=== PATIENT | female | born 1975 | race Caucasian/White ===

== ENCOUNTER 2023-05-03 01:46 | Outpatient (CLI) | payer SELFPAY ==
[2023-05-04 18:24] LABS: HBs Antibody, Quant 149.3 mIU/mL (See Note); Hepatitis B Surface Ab Positive (See Note)
[2023-05-07 11:09] LABS: Measles IgG Antibody Positive (See Note); Mumps Antibody IgG Positive (See Note); Varicella IgG Antibody Positive (See Note)
[2023-05-07 11:17] LABS: Rubella IgG Ab (UVM) Positive (See Note)
[2023-05-07 14:17] LABS: TB Interpretation Negative (Negative); TB2 Ag minus Nil 0.02 IU/mL
== END 2023-05-03 01:47 | disposition home or self-care (01) ==
PROVIDERS: Visit Provider Nurse Practitioner Family
DX: Z02.1 Encounter for pre-employment examination (principal)
CPT/HCPCS: 36415; 86706; 86787; 86480; 86735; 86762; 86765

== ENCOUNTER 2023-06-12 05:54 | Emergency (ER) | payer SELFPAY ==
[2023-06-12 05:57] VITALS: BP 195/93; PULSE 85; RESP 16; TEMP 36.5; O2SAT 99
--- NOTE | 2023-06-12 06:00 | DI.RAD_ITS ---
Exam(s) XR ANKLE RT COMPLETE EXAM: XR ANKLE RT COMPLETE CLINICAL HISTORY: Right lateral malleolar pain. TECHNIQUE: 2D digital imaging was performed. COMPARISON: No exams were available for comparison FINDINGS: 3 views There is soft tissue swelling over the lateral malleolus but no fracture. No widening of the ankle m ortise. Talar dome unremarkable. Bone density normal. No osseous lesions. No osseous tarsal coali tion. IMPRESSION: Soft tissue swelling laterally. No fracture evident. DATA REPOSITORY: RADIATION DOSE DELIVERED:
--- NOTE | 2023-06-12 06:02 | ED.GENADUL_ITS ---
Discharge Plan Disposition Patient Disposition: Home Discharge Details Clinical Impression: Right ankle sprain Primary Care Provider: Unknown,Unknown ED Provider: Hussain Brock Home Meds and New Rx's Prescriptions: No Action No Known Home Meds Discharge Instructions Instructions: Ankle Sprain (ED) Additional Instructions: You were seen in the emergency department for your ankle pain. Your x-ray showed no sign of any fractures and you were diagnosed with an ankle sprain. Please wear this lace up ankle brace. Please keep your foot elevated today. Please ice for 20 minutes on 20 minutes off today. Please return to the emergency department if you cannot feel your toes if you develop worsening pain or if you take any other falls. Otherwise please follow-up later this week with your primary care provider. For your pain please take medications as follows: 1. Take acetaminophen (Tylenol), 1,000 mg (two 500 mg tabs) every 6 hours [2. Take ibuprofen (Advil), 400 mg every 6 hours.] Stand Alone Forms: Work Release HPI General Date/Time Provider Initiated Documentation: 06/12/23 06:02 . HPI Narrative: MDM This is an overall very well-appearing normothermic and not tachycardic 48-year-old female with right lateral malleolus tenderness and swelling concerning for fracture versus ankle sprain. No pain out of proportion to suggest necrotizing soft tissue infection. No proximal tibial tenderness to suggest Maisonneuve as injury. Patient is not a diabetic nor a vasculopath and has warm well-perfused feet bilaterally so I have no suspicion for aortic occlusion nor aortic dissection so I do not feel that the patient requires a CT angiogram with runoffs. Given her well-perfused warm foot with less than 2- second capillary refill I have no suspicions for critical limb ischemia. No calf pain to suggest increased risk for DVT so I did not feel that the patient required a duplex study. No recent fluoroquinolone use nor any posterior lower extremity. To suggest Achilles tendon rupture so I did not perform a Landis test. No erythema to suggest cellulitis. Patient can straight leg raise so I have no suspicion for quadriceps tendon injury. No fluctuance to suggest abscess. No preceding syncope to suggest benefit from syncope evaluation. No axial loading nor calcaneal tenderness to suggest calcaneal fractures but did not obtain any foot x-rays. Will reassess following ice and imaging. Given her ankle swelling I suspect that her elevated blood pressure is secondary to pain. Will repeat. 6:36 AM Virtual radiology preliminary read showing no fracture. Will place patient in a lace up ankle brace at repeat blood pressure prior to discharge with empiric trial of expectant outpatient management with PCP follow-up. Elevated blood pressure improved in the emergency department without intervention. [ ] Chronic conditions affecting the care of the patient: N/A History obtained from an outside historian: N/A External record review: No [facility] EMR records Medications: Ibuprofen acetaminophen Social determinants of health affecting disposition: N/A Management discussed with: [] Treatment/interventions considered: N/A Response to therapies provided: [] HPI This is a previously healthy 48-year-old female arrived to the emergency department via private vehicle in the setting of right ankle. 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 She tripped over a black cat. She did not hit her head. She did not lose consciousness. She was not having any preceding chest pain nausea vomiting dizziness nor shortness of breath. She was able to ambulate afterwards. She drove herself to the hospital. She has had no past surgeries to her right ankle. She did not take ibuprofen or acetaminophen yet. She is not anticoagulated. He has no proximal tibial pain. No chest pain. No shortness of breath. Exam General: Well-appearing slender female in no acute distress speaking in complete sentences. Head: Normocephalic, atraumatic. Eye: Extraocular eye movements intact. No conjunctival injection. No scleral icterus. Ear, nose, mouth, throat: Grossly normal inspection. Normal voice, handling secretions normally. Neck: Trachea midline. Cardiovascular: Well-perfused distal extremities. Respiratory: Nonlabored respiration. Gastrointestinal: Nondistended abdomen. Musculoskeletal: Right lower extremity: Right lower extremity with marked swelling over the right lateral malleolus. Nontender through high knee and proximal and distal tibia. Right lateral malleolus tenderness. No erythema. No lacerations. No fluctuance. No medial malleolus tenderness. 3 out of 5 strength right foot dorsi and plantarflexion limited secondarily to pain. 2+ PT and DP pulses. Cap refill less than 2 seconds in the left toes. No tenderness throughout the left foot. Patient is able to straight leg raise. Bilateral upper extremities: Nontender. Left lower extremity: Nontender Skin: Normal for age and race, grossly normal temperature and turgor. No acute rash. Neurologic: Alert and appropriate, no apparent acute deficits. Psychiatric: Mood and manner are appropriate. Grooming and personal hygiene are appropriate. Related Data Home Medications Medication Instructions Recorded Confirmed Unknown [No Known Home Meds] 06/12/23 06/12/23 Allergies Allergy/AdvReac Type Severity Reaction Status Date / Time sulfa Allergy rash Uncoded 06/12/23 06:02 General Stated Complaint: Orthopedic MARILYN: 4 Course Vital Signs Vital signs: Vital Signs Temperature 36.5 C 06/12/23 05:57 Pulse 85 06/12/23 05:57 Respiratory Rate 16 06/12/23 05:57 Blood Pressure 195/93 H 06/12/23 05:57 Pulse Oximetry 99 06/12/23 05:57 Temperature 36.5 C 06/12/23 05:57 Temperature Source Temporal Artery Scan 06/12/23 05:57 Pulse 85 06/12/23 05:57 Respiratory Rate 16 06/12/23 05:57 Blood Pressure 195/93 H 06/12/23 05:57 Blood Pressure Position Supine 06/12/23 05:57 Pulse Oximetry 99 06/12/23 05:57 Oxygen Delivery Method Room Air 06/12/23 05:57 Oxygen Flow Rate 0 06/12/23 05:57 Pain Level 1 06/12/23 05:57 Medical Decision Making Quality:SDOH Health Related Social Needs: No Data to Display PFSH All Active Problems (Updated 06/12/23 @ 06:37 by Hussain Brock MD) Right ankle sprain (Acute) Social History Smoking/Tobacco Use Status: Never Smoking risk assessment performed?: Yes Alcohol Intake: never Drug use: Never
[2023-06-12] MEDS: Acetaminophen 500 MG TAB 1000 MG PO (06:11)
[2023-06-12] MEDS: Ibuprofen 400 MG TAB PO (06:11)
--- NOTE | 2023-06-12 06:33 | DI.VRAD_ITS ---
PROCEDURE INFORMATION: Exam: XR Right Ankle Exam date and time: 06/12/2023 6:22 AM Age: 48 years old Clinical indication: Ankle; Patient HX: Right lateral malleolar pain TECHNIQUE: Imaging protocol: Radiologic exam of the right ankle. Views: 3 or more views. COMPARISON: No relevant prior studies available. FINDINGS: Bones/joints: No fracture. No dislocation. Ankle mortise intact. Soft tissues: Soft tissue swelling over the lateral malleolus. IMPRESSION: 1. Soft tissue swelling over the lateral malleolus. 2. No fracture. Dictated and Authenticated by: Rico Cowan MD. Ordering:GENESIS Nixon MD
[2023-06-12 06:56] VITALS: BP 160/68; PULSE 80; RESP 16; O2SAT 100
== END 2023-06-12 07:03 | disposition home or self-care (01) ==
LOC: ER 07:49
PROVIDERS: Emergency Provider Emergency Medicine
DX: S93.401A Sprain of unspecified ligament of right ankle, initial encounter (principal); W01.0XXA Fall on same level from slipping, tripping and stumbling without subsequent striking against object, initial encounter; Y93.01 Activity, walking, marching and hiking; Y92.89 Other specified places as the place of occurrence of the external cause
CPT/HCPCS: 99283; 73610

== ENCOUNTER 2023-06-19 09:02 | Emergency (ER) | payer SELFPAY ==
--- NOTE | 2023-06-19 09:03 | ED.GENADUL_ITS ---
Discharge Plan Disposition Patient Disposition: Home Discharge Details Clinical Impression: Right ankle sprain Primary Care Provider: Unknown,Unknown ED Provider: Hussain Brock Home Meds and New Rx's Prescriptions: No Action No Known Home Meds Discharge Instructions Additional Instructions: You are seen in the emergency department for your ankle pain. Your x-ray and yo ur CAT scan showed no signs of any broken bones. Please ice your foot for 20 minutes on 20 minutes off as needed. Please follow-up with your primary care provider if your symptoms do not improve next week as you may benefit from an MRI. For your pain please take medications as follows: 1. Take acetaminophen (Tylenol), 1,000 mg (two 500 mg tabs) every 6 hours [2. Take ibuprofen (Advil), 400 mg every 6 hours.] Discharge Data Discharge Date/Time-TO BE ENTERED AT DEPARTURE: 06/19/23 11:45 HPI General Date/Time Provider Initiated Documentation: 06/19/23 09:03 . HPI Narrative: MDM This is uncomfortable appearing normothermic and not tachycardic 48-year-old female with persistent right lateral malleolus pain and swelling and tenderness with negative x-rays for which patient will undergo CT scan to increase sensitivity for fracture. No pain out of proportion to suggest necrotizing soft tissue infection. No proximal tibial tenderness to suggest Maisonneuve as injury. Patient is not a diabetic nor a vasculopath and has warm, well-perfused feet bilaterally so I have no suspicion for aortic occlusion nor aortic dissection so I do not feel that the patient requires a CT angiogram with runoffs. Given her well-perfused warm foot with less than 2-second capillary refill I have no suspicions for critical limb ischemia. No calf pain to suggest increased risk for DVT so I did not feel that the patient required a duplex study. No recent fluoroquinolone use nor any posterior lower extremity to suggest Achilles tendon rupture so I did not perform a Landis test. No erythema to suggest cellulitis. Patient can straight leg raise so I have no reyes spicion for quadriceps tendon injury. No fluctuance to suggest abscess. No lateral foot tenderness to suggest Menendez fracture. No midfoot instability to suggest Lisfranc injury. No preceding syncope to suggest benefit from syncope evaluation. 11:[address] scan read with no acute abnormalities. Patient and I discussed acetaminophen and ibuprofen and wearing her ankle brace. We discussed following up with her primary care provider next week if her symptoms did not improve as she may benefit from an MRI. I advised ED return for any significant worsening of her pain or any falls. Patient understood her return indications and was discharged with empiric trial of expectant outatient management. Chronic conditions affecting the care of the patient: N/A History obtained from an outside historian: N/A External record review: No [facility] EMR records Medications: Ibuprofen acetaminophen Social determinants of health affecting disposition: N/A Management discussed with: N/A Treatment/interventions considered: N/A Response to therapies provided: N/A HPI This is a previously healthy 48-year-old female arrived to the emergency department via private vehicle in the setting of right ankle pain. Patient was seen 7 days ago with similar symptoms after her injury. She has been ambulating but not able to wear her ankle brace as she reports irritation from rubbing. 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 She denies any subsequent falls or trauma. She reports that her pain feels slightly improved but she is concerned that it has not fully resolved. She has been alternating acetaminophen and ibuprofen. No preceding chest pain. Patient denies fevers chills nausea vomiting dysuria and frequency. Exam General: Well-appearing in no acute distress speaking in complete sentences. Head: Normocephalic, atraumatic. Eye: Extraocular eye movements intact. No conjunctival injection. No scleral icterus. Ear, nose, mouth, throat: Grossly normal inspection. Normal voice, handling secretions normally. Neck: Trachea midline. Cardiovascular: Well-perfused distal extremities. Respiratory: Nonlabored respiration. Gastrointestinal: Nondistended abdomen. Musculoskeletal: Right lower extremity: Right lower extremity with improved swelling over the right lateral malleolus compared to last week. Patient does have some tenderness inferior to her right lateral malleolus on her foot. Nontender through high knee and proximal and distal tibia. Right lateral malleolus tenderness. No erythema. No lacerations. No fluctuance. No medial malleolus tenderness. 3 out of 5 strength right foot dorsi and plantarflexion limited secondarily to pain. 2+ PT and DP pulses. Cap refill less than 2 seconds in the left toes. No tenderness throughout the left foot. Patient is able to straight leg raise. Bilateral upper extremities: Nontender. Left lower extremity: Nontender Skin: Normal for age and race, grossly normal temperature and turgor. No acute rash. Neurologic: Alert and appropriate, no apparent acute deficits. Psychiatric: Mood and manner are appropriate. Grooming and personal hygiene are appropriate. Related Data Home Medications Medication Instructions Recorded Confirmed Unknown [No Known Home Meds] 06/12/23 06/19/23 Allergies Allergy/AdvReac Type Severity Reaction Status Date / Time sulfa Allergy rash Uncoded 06/19/23 10:07 General MARILYN: 4 Medical Decision Making Quality:SDOH Health Related Social Needs: No Data to Display PFSH All Active Problems (Updated 06/19/23 @ 11:31 by Hussain Brock MD) Right ankle sprain (Acute) Social History Smoking/Tobacco Use Status: Never Smoking risk assessment performed?: Yes Alcohol Intake: never Drug use: Never Do you feel safe at home: Yes Do you feel safe in your relationship?: Yes
[2023-06-19 09:04] VITALS: BP 170/87; PULSE 83; RESP 12; TEMP 36.6; O2SAT 100
--- NOTE | 2023-06-19 09:37 | DI.RAD_ITS ---
Exam(s) XR ANKLE RT COMPLETE EXAM: XR ANKLE RT COMPLETE CLINICAL HISTORY: Right ankle pain. TECHNIQUE: 2D digital imaging was performed. Three views. COMPARISON: CR,XR XR ANKLE RT COMPLETE from 06/12/2023 FINDINGS: BONES: No acute fracture is present. No bony destructive lesion is seen. JOINTS: The ankle mortise is normally aligned. SOFT TISSUE: Lateral swelling. IMPRESSION: Soft tissue swelling. DATA REPOSITORY: RADIATION DOSE DELIVERED:
--- NOTE | 2023-06-19 09:45 | DI.CT_ITS ---
Exam(s) CT LOWER EXTREMITY RT WO EXAM: CT LOWER EXTREMITY RT WO CLINICAL HISTORY: Right ankle and foot pain. TECHNIQUE: Imaging Protocol: Axial computed tomography images with coronal and sagittal reformatted images were created and reviewed. CONTRAST MATERIAL: Noncontras - COMPARISON: CR,XR XR ANKLE RT COMPLETE from 06/12/2023 CR XR ANKLE RT COMPLETE from 06/19/2023 FINDINGS: Bones: There is no evidence of fracture. No cellulitic or osteomyelitic changes are identified. No lytic or sclerotic lesions are identified. Joints: No dislocation or subluxation. There is no significant joint space narrowing. No significan t periarticular spurring. Ankle mortise appears intact. Soft Tissues: Mild soft tissue swelling adjacent to lateral malleolus. Tendons are grossly intact as visualized IMPRESSION: No acute abnormality of the right ankle and foot. . RADIATION DOSE DELIVERED: Total DLP DATA REPOSITORY: All CT scans at this facility are submitted to the National Radiology Data Registry (NRDR) Dose Index Registry (DIR) with the [employer] (A[employer]). RADIATION OPTIMIZATION: All CT scans at this facility use at least one of these dose optimization te chniques: automated exposure control; mA and/or kV adjustment per patient size (includes targeted exa ms where dose is matched to clinical indication); or iterative reconstruction.
== END 2023-06-19 11:45 | disposition home or self-care (01) ==
PROVIDERS: Emergency Provider Emergency Medicine
DX: S93.401A Sprain of unspecified ligament of right ankle, initial encounter (principal); X58.XXXA Exposure to other specified factors, initial encounter
CPT/HCPCS: 99284; 73610; 73700